=== PATIENT | female | born 1990 | race African-American/Black ===

== ENCOUNTER 2022-11-03 03:04 | Emergency (ER) | payer OTHER ==
[~2022-11-03] VITALS: Ht 167.6 cm; Wt 79.5 kg
[2022-11-03 03:06] VITALS: BP 122/79
[2022-11-03] MEDS ORDERED: OCRE300V (03:15)
[2022-11-03] MEDS ORDERED: IBUP-1492 PO (03:23)
[2022-11-03] MEDS ORDERED: AMOX500C2 PO (03:23)
[2022-11-03] MEDS ORDERED: IBUPROFEN 600 MG TABLET PO ONE (03:30)
[2022-11-03] MEDS ORDERED: TRAM-559 PO (14:47)
== END 2022-11-03 03:32 | disposition home or self-care (01) ==
LOC: EMS 03:09
DX: H66.91 Otitis media, unspecified, right ear (principal)
CPT/HCPCS: 99283

== ENCOUNTER 2022-11-03 12:58 | Emergency (ER) | payer OTHER ==
[~2022-11-03] VITALS: Ht 172.7 cm; Wt 87.0 kg
[~2022-11-03 12:58] MED LIST: AMOX500C2 PO; IBUP-1492 PO; OCRE300V
[2022-11-03 13:18] VITALS: BP 142/70
[2022-11-03] MEDS ORDERED: TRAM-559 PO (14:47)
== END 2022-11-03 15:06 | disposition home or self-care (01) ==
LOC: EMS 12:58
DX: H66.41 Suppurative otitis media, unspecified, right ear (principal)
CPT/HCPCS: 99283; Z7502